=== PATIENT | male | born 1980 | race Caucasian/White ===

== ENCOUNTER 2020-10-31 07:26 | Emergency (ER) | payer OTHER ==
[~2020-10-31] VITALS: Ht 177.8 cm; Wt 74.6 kg
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
[2020-10-31 08:26] LABS: MICROSCOPIC NOT IND
[2020-10-31 08:29] LABS: BASOPHILS % (AUTO) 1 % (0-1); EOSINOPHILS % (AUTO) 1 % (1-7); LYMPHOCYTES % (AUTO) 21 % (22-44); MEAN CORPUSCULAR HEMOGLOBIN 29.7 pg (27.5-34.5); MONOCYTES % (AUTO) 7 % (2-9); NEUTROPHILS % (AUTO) 70 % (42-75); PLATELET COUNT 185 x10^3/uL (130-400); RED BLOOD COUNT 6.08 x10^6/uL (4.38-5.82); RED CELL DISTRIBUTION WIDTH 13.9 % (9.4-14.8)
[2020-10-31] MEDS ORDERED: SODIUM CHLORIDE FLUSH 10ML SYR IVF ONE (08:30)
[2020-10-31 08:35] LABS: HEMOGRAM NOTE RECHECKED; MD NO
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
[2020-10-31 08:41] LABS: ALANINE AMINOTRANSFERASE 30 U/L (12-78); ANION GAP 5 mmol/L (5-15); CALCIUM 8.8 mg/dL (8.5-10.1); CHLORIDE 109 mmol/L (98-107); CREATININE 1.02 mg/dL (0.7-1.3)
[2020-10-31 08:44] LABS: ALKALINE PHOSPHATASE 129 U/L (45-117); BILIRUBIN,TOTAL 0.7 mg/dL (0.2-1.0); TOTAL PROTEIN 7.6 g/dL (6.4-8.2)
[2020-10-31] MEDS ORDERED: OMNIPAQUE 350 MG/ML, 100ML BOTTLE ONE ×2 (09:10→09:44)
--- NOTE | 2020-10-31 09:52 | NUR ---
PT REQUESTING IV TO BE DC'D "ITS GETTING UNCOMFORTABLE AND HE () IS GOING TO RELEASE ME" IV DC'D WITH CANNULA INTACT. PT AWARE OF WAITING FOR PAPERWORK. "I HAVE TO GO TO THE BR TOO"
[2020-10-31 10:01] VITALS: BP 137/72
== END 2020-10-31 10:03 | disposition home or self-care (01) ==
LOC: ED 08:46
DX: R10.31 Right lower quadrant pain (principal); K62.5 Hemorrhage of anus and rectum; R11.0 Nausea; R19.7 Diarrhea, unspecified; F17.200 Nicotine dependence, unspecified, uncomplicated
CPT/HCPCS: 36415; 74177; 80053; 81003; 85025; 99285; Q9967